=== PATIENT | male | born 1990 | race Caucasian/White ===

== ENCOUNTER 2016-12-06 08:56 | Emergency (ER) | payer OTHER ==
[2016-12-06 09:02] VITALS: RESP 20; TEMP 98.1
[2016-12-06 09:08] VITALS: BP 139/73; PULSE 75; O2SAT 97
== END 2016-12-06 09:28 | disposition home or self-care (01) | DRG 195 ==
LOC: ED 08:56
DX: R09.1 Pleurisy (principal)
CPT/HCPCS: 99282